=== PATIENT | male | born 1985 | race American Indian/Alaskan Native ===

== ENCOUNTER 2018-06-25 12:39 | Outpatient (CLI) | payer OTHER ==
--- NOTE | 2018-06-26 03:19 | Magnetic Resonance Report ---
FINAL REPORT PROCEDURE: MR LE JOINT LT WO CON TECHNIQUE: Magnetic resonance imaging of the LEFT knee was performed using standard pulse sequences HISTORY: knee injuryoutpatient COMPARISON: No prior studies are available for comparison. FINDINGS: Medial meniscus: Normal. Lateral meniscus: Normal. Anterior cruciate ligaments: Normal. Posterior cruciate ligament: Normal. Medial collateral ligament: Normal. Iliotibial band: Normal. Lateral collateral ligamentous complex: Normal. Medial patellar retinaculum: Normal. Lateral patellar retinaculum: Normal. Marrow signal: There is a small area of marrow signal irregularity in the lateral femoral condylar re gion, this measures 3 x 4 millimeters. Small area of bone bruise is suspected. No cortical destructio n. Chondral defects: None. Patellofemoral joint: Normal. Joint effusion: None. Mass lesion: None. Popliteal cyst: None. Soft tissues: Normal. IMPRESSION: Small marrow irregularity in the lateral femoral condylar region posteriorly measures 3 x 4 millimete rs, this is consistent with a small bone bruise. No cortical destruction. The remainder of the study is normal.
== END 2018-06-25 12:40 | disposition home or self-care (01) ==
LOC: MRI 12:39
PROVIDERS: ATTEND Internal Medicine
DX: S89.92XA Unspecified injury of left lower leg, initial encounter (principal); M25.462 Effusion, left knee; X58.XXXA Exposure to other specified factors, initial encounter; Y93.67 Activity, basketball; Y92.89 Other specified places as the place of occurrence of the external cause; Y99.8 Other external cause status
CPT/HCPCS: 73721